=== PATIENT | male | born 1990 | race Asian ===

== ENCOUNTER 2018-12-24 12:00 | Emergency (ER) | payer OTHER ==
[~2018-12-24] VITALS: Ht 177.8 cm; Wt 61.2 kg
[2018-12-24] MEDS ORDERED: NAPROSYN500 MG PO (13:38)
[2018-12-24 14:07] VITALS: BP 115/78
== END 2018-12-24 14:08 | disposition home or self-care (01) ==
LOC: ER 12:00
DX: S61.411A Laceration without foreign body of right hand, initial encounter (principal); X50.9XXA Other and unspecified overexertion or strenuous movements or postures, initial encounter; Y93.69 Activity, other involving other sports and athletics played as a team or group; Y92.89 Other specified places as the place of occurrence of the external cause; Y99.8 Other external cause status